=== PATIENT | male | born 1935 | race Caucasian/White ===

== ENCOUNTER → 2020-10-20 | Outpatient (CLI) | payer MEDICARE ==
[~2020-10-20] MED LIST: ALBUTEROL2.5 MG/3 M INH; AMLODIPINE BESYL5 MG PO; BENZONATATE200 MG PO; BREO ELLIPTA 11 EACH INH; BROVANA15 MCG/2 M INH; CARDIZEM CD180 MG PO; CEFUROXIME500 MG PO; ECOTRIN81 MG PO; EMBEDA ER 30-11 EACH PO; FLOMAX0.4 MG PO; INCRUSE ELLI62.5 MCG INH; IPRAT-ALBUT 0.5-3 ML INH; LEVAQUIN750 MG PO; LEXAPRO5 MG PO; MEDROL DOSEPAK 24 MG PO; MEDROL4 MG PO; NITROSTAT0.4 MG SL; NORCO 10-325 T1 EACH PO; OMNICEF 300 MG300 MG PO; PREDNISONE10 MG PO; PULMICORT0.5 MG/21 INH; SYMBICORT 16010.2 GM INH; TOPROL XL25 MG PO; TYLENOL 650 MG650 MG PO; VENTOLIN HFA 66.7 GM INH; VIAGRA100 MG PO; VISTARIL25 MG PO
== END ==
LOC: KOH-I 10:36
DX: M54.5 Low back pain (principal); G89.29 Other chronic pain; M51.36 Other intervertebral disc degeneration, lumbar region; N28.1 Cyst of kidney, acquired
CPT/HCPCS: 72131

== ENCOUNTER → 2021-01-09 | Outpatient (CLI) | payer MEDICARE | LOC: KOH-I 11:58 | DX: R05 Cough (principal) | CPT/HCPCS: 71046 ==

== ENCOUNTER 2021-03-13 11:32 | Emergency (ER) | payer MEDICARE ==
[2021-03-13] MEDS ORDERED: DELSYM30 MG/5 ML PO (15:33)
== END 2021-03-13 15:53 | disposition home or self-care (01) ==
LOC: ER1 11:32
DX: Z23 Encounter for immunization (principal); U07.1 COVID-19; J44.9 Chronic obstructive pulmonary disease, unspecified; I25.2 Old myocardial infarction
CPT/HCPCS: 99283; M0243

== ENCOUNTER → 2021-04-24 | Outpatient (CLI) | payer MEDICARE ==
[~2021-04-24] MED LIST changes: +DELSYM30 MG/5 ML PO
== END ==
LOC: KOH-I 09:16
DX: M25.551 Pain in right hip (principal); N21.0 Calculus in bladder
CPT/HCPCS: 73502

== ENCOUNTER 2021-06-24 17:07 | Emergency (ER) | payer MEDICARE ==
[2021-06-24 18:02] LABS: HEMOGLOBIN 13.8 gm/dl (14.0-17.5); RED BLOOD COUNT 4.49 M/UL (4.20-5.50); WHITE BLOOD COUNT 9.3 K/UL (4.5-11.0)
[2021-06-24] MEDS ORDERED: DOXYCYCLINE HY100 MG PO ×2 (21:16→21:33)
[2021-06-24] MEDS ORDERED: PREDNISONE 20 M20 MG PO ×2 (21:16→21:33)
== END 2021-06-24 21:31 | disposition home or self-care (01) ==
LOC: ER1 17:07
PROVIDERS: Emergency Medicine
DX: J44.1 Chronic obstructive pulmonary disease with (acute) exacerbation (principal); I25.10 Atherosclerotic heart disease of native coronary artery without angina pectoris; I10 Essential (primary) hypertension; Z20.822 Contact with and (suspected) exposure to COVID-19; Z87.891 Personal history of nicotine dependence
CPT/HCPCS: 0240U; 36415; 36600; 71045; 80053; 82550; 82553; 82803; 83874; 83880; 84484; 85025; 85610; 85730; 93005; 94640; 94760; 96374; 99285; J2930

== ENCOUNTER → 2021-07-25 | Outpatient (CLI) | payer MEDICARE ==
[~2021-07-25] MED LIST changes: +DOXYCYCLINE HY100 MG PO; +PREDNISONE 20 M20 MG PO
== END ==
LOC: LBRF 10:04
DX: J20.9 Acute bronchitis, unspecified (principal); J42 Unspecified chronic bronchitis
CPT/HCPCS: 87205

== ENCOUNTER → 2021-09-13 | Outpatient (CLI) | payer MEDICARE | LOC: HEART 5 13:39 | DX: R06.02 Shortness of breath (principal) | CPT/HCPCS: 94060; 94729 ==

== ENCOUNTER 2022-03-12 10:33 | Emergency (ER) | payer MEDICARE ==
[~2022-03-12 10:33] MED LIST changes: +AMOXICILLIN875 MG PO; +ZANAFLEX2 MG PO
[2022-03-12 16:10] LABS: HEMOGLOBIN 12.9 gm/dl (14.0-17.5); RED BLOOD COUNT 4.26 M/UL (4.20-5.50); WHITE BLOOD COUNT 9.5 K/UL (4.5-11.0)
[2022-03-12 16:42] LABS: BUN/CREATININE RATIO 12 (0-10)
[2022-03-12] MEDS ORDERED: MECLIZINE HCL25 MG PO (17:40)
[2022-03-12] MEDS ORDERED: AMOXICILLIN500 M1 PO (17:40)
[2022-03-12] MEDS ORDERED: ONDANSETRON ODT4 MG SL (17:40)
== END 2022-03-12 18:20 | disposition home or self-care (01) ==
LOC: ER1 10:33
PROVIDERS: Physician Assistant
DX: J32.9 Chronic sinusitis, unspecified (principal); R42 Dizziness and giddiness; R00.1 Bradycardia, unspecified; I12.9 Hypertensive chronic kidney disease with stage 1 through stage 4 chronic kidney disease, or unspecified chronic kidney disease; N18.9 Chronic kidney disease, unspecified; J44.9 Chronic obstructive pulmonary disease, unspecified; H61.21 Impacted cerumen, right ear
CPT/HCPCS: 70450; 71045; 80053; 81001; 82550; 82553; 84484; 85025; 93005; 99284; J7040